=== PATIENT | male | born 1955 | race African-American/Black ===

== ENCOUNTER 2016-06-21 06:43 | Day surgery (SDC) | payer BC ==
[2016-06-16 09:26] VITALS: BMI 23.8
[2016-06-21] MEDS ORDERED: GENTAMICIN SULFATE 0.3% OPHTHALMIC (EYE DROPS) 5ML BOTTLE ONE (07:05)
[2016-06-21] MEDS ORDERED: CYCLOPENTOLATE HCL 1% OPHTH SOLN 2 ML BOTTLE ONE (07:05)
[2016-06-21] MEDS ORDERED: TROPICAMIDE 1% OPHTH SOLN 15 ML BOTTLE ONE (07:05)
[2016-06-21] MEDS ORDERED: PHENYLEPHRINE 2.5% OPHTH SOLN 15 ML BOTTLE ONE (07:05)
[2016-06-21] MEDS ORDERED: FLURBIPROFEN 0.03% OPHTH SOLN 2.5 ML BOTTLE ONE (07:05)
[2016-06-21] MEDS: PHENYLEPHRINE 2.5% OPHTH SOLN 15 ML BOTTLE OS SCH ×5 (07:15→08:05)
[2016-06-21] MEDS: GENTAMICIN SULFATE 0.3% OPHTHALMIC (EYE DROPS) 5ML BOTTLE OS SCH ×5 (07:15→07:35)
[2016-06-21] MEDS: TROPICAMIDE 1% OPHTH SOLN 15 ML BOTTLE OS SCH ×5 (07:15→07:35)
[2016-06-21] MEDS: CYCLOPENTOLATE HCL 1% OPHTH SOLN 2 ML BOTTLE OS SCH ×5 (07:15→07:35)
[2016-06-21] MEDS: FLURBIPROFEN 0.03% OPHTH SOLN 2.5 ML BOTTLE OS SCH ×5 (07:15→07:35)
[2016-06-21] MEDS ORDERED: PROPOFOL 20 ML ONE ×2 (07:22)
[2016-06-21] MEDS ORDERED: ONDANSETRON 4 MG/2 ML VIAL ONE (07:25)
[2016-06-21] MEDS ORDERED: BETAXOLOL HCL 0.25% OPHTHALMIC 10 ML DROPSBTL ONE (07:28)
[2016-06-21] MEDS ORDERED: BACITRACIN/POLYMYXIN OPH OINT 3.5 GM TUBE ONE (07:28)
[2016-06-21] MEDS ORDERED: EPINEPHrine 1:1,000 1 MG/1 ML - 30ML VIAL (INJECTION) ONE (07:29)
[2016-06-21] MEDS ORDERED: TETRACAINE 0.5% OPHTH SOLN 2 ML BOTTLE ONE (07:29)
[2016-06-21] MEDS ORDERED: LIDOCAINE HCL/PF 2% SDV 5ML VIAL ONE (07:29)
[2016-06-21] MEDS ORDERED: ACETYLCHOLINE 1:100 INTRA-OCUL 20 MG/2 ML KIT ONE (07:29)
[2016-06-21] MEDS ORDERED: POVIDONE-IODINE 5% OPHTHALMIC PREP 30 ML SOLUTION ONE (07:29)
[2016-06-21] MEDS ORDERED: BUPIVACAINE HCL/PF 0.5% (5MG/ML) 10 ML VIAL ONE (07:29)
[2016-06-21] MEDS ORDERED: NEO/POLYMYX B SULF/DEXAMETH OPHTHALMIC 5ML BOTTLE ONE (07:30)
[2016-06-21] MEDS ORDERED: MIDAZOLAM HCL 2 MG/2 ML SINGLE DOSE VIAL ONE (08:06)
[2016-06-21] MEDS ORDERED: BSS (NA/CA/MG/K) BALANCED SALT SOLUTION OPHTH SOLN 15 ML BOTTLE ONE (08:53)
[2016-06-21] MEDS ORDERED: ACETAMINOPHEN 325 MG TABLET (FP) PO PRN (09:26)
[2016-06-21 10:30] VITALS: BP 120/74; PULSE 70; TEMP 98.2
--- NOTE | 2016-06-21 11:37 | OP ---
DATE OF OPERATION: 06/21/2016 PREOPERATIVE DIAGNOSIS: Cataract, left eye. POSTOPERATIVE DIAGNOSIS: Cataract, left eye. PROCEDURE: Cataract extraction via phacoemulsification with insertion of posterior chamber lens implant, left eye. SURGEON: Misael Callejas MD SUPERVISOR [employer]ER REPAIR: Leola Hutson MD, ANESTHESIA: Regional with sedation. COMPLICATIONS: None. SPECIMENS: None. ESTIMATED BLOOD LOSS: Less than 1 mL. DESCRIPTION OF PROCEDURE: The patient was identified in the holding area. After all risks, benefits, and alternatives were explained to the patient, informed consent was obtained. The left eye was marked with a marking pen. The patient then entered the operating room on an eye stretcher. After a formal time-out was performed, a 3-mL injection of equal parts 2% lidocaine with epinephrine and 0.5% Marcaine was given around the left eye. The patient was then prepped and draped in the usual sterile fashion. An eyelid speculum was placed beneath the eyelids of the left eye. A 15-degree blade was then used to make an inferotemporal paracentesis incision followed by injection of intracameral air and followed by injection of Trypan Blue to stain the anterior capsule. Balanced saline solution was then used to wash all Trypan Blue out from the eye. Viscoelastic was then used to reform the anterior chamber. A 2.4-mm keratome blade was then used to make a superotemporal incision. A 360-degree continuous curvilinear capsulorrhexis was then created using bent cystotome and Utrata forceps. Hydrodissection was performed with balanced saline solution on a cannula. Phacoemulsification was then introduced to disassemble and remove the nucleus in its entirety. Irrigation/aspiration was then used to remove any remaining cortical material from the eye. The capsular bag was then reformed using viscoelastic. An Kwesi model SN60WF with a power of 6.5 diopters, serial number [id number], was inspected and found to be defect-free and injected into the capsular bag. Irrigation/aspiration was then used to remove any remaining viscoelastic from the eye. Balanced saline solution was then used to reform the anterior chamber. Intracameral injections of Miochol and Miostat were then given. The pupil came down and was round. All wounds were hydrated with balanced saline solution and found to be watertight. The eye had an adequate pressure. The anterior chamber was deep. The lens was perfectly centered in the capsular bag. Then, topical antibiotic eye drops and ointment were then instilled onto the left eye. The eyelid speculum was then removed from the left eye. The left eye was then patched and shielded, and the patient tolerated the procedure well and left the operating room in stable condition to follow up in the eye clinic the following morning at 9:00. MISAEL CALLEJAS M.D. [id number]
== END 2016-06-21 10:33 | disposition home or self-care (01) ==
LOC: FASU 06:43
PROVIDERS: ATTEND Ophthalmology
PROC: 08RK3JZ Replacement of Left Lens with Synthetic Substitute, Percutaneous Approach (ICD-10-PCS; principal; 2016-06-21 08:39)
DX: H26.8 Other specified cataract (principal)